=== PATIENT | male | born 1965 | race Caucasian/White ===

== ENCOUNTER 2022-04-02 08:00 | Outpatient (RCR) | payer OTHER, SELFPAY | END 2022-04-03 23:59 | disposition home or self-care (01) | LOC: CR 08:00 | PROVIDERS: PCP Internal Medicine Cardiovascular Disease; Visit Provider Internal Medicine Cardiovascular Disease | DX: Z51.89 Encounter for other specified aftercare (principal); I25.2 Old myocardial infarction | CPT/HCPCS: S9472 ==

== ENCOUNTER 2022-05-02 08:23 | Outpatient (RCR) | payer OTHER, SELFPAY | END 2022-05-04 23:59 | disposition home or self-care (01) | LOC: CR 08:23 | PROVIDERS: PCP Internal Medicine Cardiovascular Disease; Referring Provider Family Medicine; Visit Provider Internal Medicine Cardiovascular Disease | DX: Z51.89 Encounter for other specified aftercare (principal); I25.2 Old myocardial infarction | CPT/HCPCS: S9472 ==

== ENCOUNTER 2022-06-04 08:00 | Outpatient (RCR) | payer OTHER, SELFPAY | END 2022-06-04 23:59 | disposition home or self-care (01) | LOC: CR 08:00 | PROVIDERS: PCP Internal Medicine Cardiovascular Disease; Referring Provider Family Medicine; Visit Provider Internal Medicine Cardiovascular Disease | DX: Z51.89 Encounter for other specified aftercare (principal); I25.2 Old myocardial infarction | CPT/HCPCS: S9472 ==

== ENCOUNTER 2022-06-16 08:00 | Outpatient (RCR) | payer OTHER, SELFPAY | END 2022-07-04 23:59 | disposition home or self-care (01) | LOC: CR 08:00 | PROVIDERS: PCP Internal Medicine Cardiovascular Disease; Referring Provider Family Medicine; Visit Provider Internal Medicine Cardiovascular Disease | DX: Z51.89 Encounter for other specified aftercare (principal); I25.2 Old myocardial infarction | CPT/HCPCS: S9472 ==